=== PATIENT | female | born 1950 | race Asian ===

== ENCOUNTER 2016-09-09 11:20 | Day surgery (SDC) | payer BC, MEDICAID ==
[~2016-09-09] VITALS: Ht 147.3 cm; Wt 57.2 kg
[~2016-09-09 11:20] MED LIST: JANUVIA; LOSARTAN; METFORMIN; SIMVASTATIN
[2016-09-09] MEDS ORDERED: METOPROLOL (12:40)
[2016-09-09] MEDS ORDERED: OMEPRAZOLE (12:40)
[2016-09-09 12:58] VITALS: Ht 147.3 cm; Wt 57.2 kg
[2016-09-09] MEDS ORDERED: PROPOFOL 0 ML ONE (13:38)
[2016-09-09 15:28] VITALS: BP 156/73; PULSE 75; RESP 17
[2016-09-09] MEDS ORDERED: PROPOFOL 40 ML ONE (16:07)
[2016-09-09] MEDS ORDERED: LIDOCAINE 2% (SDV) 5 ML INJ ONE (16:07)
[2016-09-09 16:52] VITALS: BP 135/74; RESP 20
--- NOTE | 2016-09-12 06:24 | GILP ---
DATE OF PROCEDURE: 09/09/2016 PROCEDURE: Esophagogastroduodenoscopy with biopsies. BRIEF HISTORY AND INDICATIONS: The patient is being evaluated for followup of esophageal ulcer. PREMEDICATION: Monitored anesthesia care by anesthesiologist. SURGEON: Martin Cortez MD. FINDINGS: ESOPHAGUS distal esophagus shows completely healed esophageal ulceration. There is residual erythema, edema and superficial erosion of the mucosa. STOMACH: Upon entrance to the stomach air was insufflated, the gastric ferguson distended normally. T he mucosa of the fundus, body and antrum of the stomach was carefully examined, shows erythema and e herson of the mucosa of a moderate degree. Biopsies were obtained to rule out H. pylori infection. PYLORUS: The pylorus appears patent and duodenum and appears unremarkable with no evidence of duode nitis, ulcer or neoplasm. IMPRESSION: 1. Healed esophageal ulcer. 2. Distal esophagitis. 3. Gastritis, rule out Helicobacter pylori infection. Biopsies were obtained. PLAN: The patient will be treated with continue proton pump inhibitor (PPI). Further recommendatio n will depend on the patient's clinical course as well as review of biopsies. Dictated By: MARTIN CORTEZ MS/AKASH Conf#: [id number] DID#: [id number]
== END 2016-09-09 17:01 | disposition home or self-care (01) ==
LOC: GIL 11:20
PROVIDERS: ATTEND Internal Medicine Gastroenterology
DX: K29.50 Unspecified chronic gastritis without bleeding (principal); K20.8 Other esophagitis; I10 Essential (primary) hypertension; E11.9 Type 2 diabetes mellitus without complications; E78.5 Hyperlipidemia, unspecified
CPT/HCPCS: 43239; 82962; 88305; 88312; Z7610